=== PATIENT | female | born 1990 | race Caucasian/White ===

== ENCOUNTER 2018-05-13 09:46 | Inpatient (IN) | payer OTHER ==
[~2018-05-13] VITALS: Ht 170.2 cm; Wt 67.1 kg
[2018-05-13] MEDS ORDERED: PRENATAL MULTI1 EAC2 PO (10:46)
[2018-05-13 10:47] VITALS: BP 136/81
[2018-05-13 10:59] LABS: ABSOLUTE BASOPHIL COUNT 0.1 /CUMM (0.0-0.2); ABSOLUTE EOSINOPHIL COUNT 0.1 /CUMM (0.0-0.7); ABSOLUTE GRANULOCYTE CT 12.1 /CUMM (1.4-6.5); ABSOLUTE LYMPH COUNT 2.4 /CUMM (1.2-3.4); ABSOLUTE MONOCYTE COUNT 0.8 /CUMM (0.10-0.60); BASOPHIL % 0.5 % (0.0-2.0); EOSINOPHIL % 0.6 % (0-5); GRANULOCYTE % 78.1 % (42.2-75.2); HEMATOCRIT 39.3 % (37-47); MEAN CORPUSCULAR HGB 33.8 PG (27.0-31.0); MEAN CORPUSCULAR HGB CONC 35.2 G/DL (33.0-37.0); MEAN PLATELET VOLUME 9.1 FL (7.4-10.4); PLATELET COUNT 224 /CUMM (130-400); RBC DISTRIBUTION WIDTH 12.6 % (11.5-14.5); RED BLOOD CELL CT 4.09 /CUMM (4.20-5.40); WHITE BLOOD CELL COUNT 15.4 /CUMM (4.8-10.8)
--- NOTE | 2018-05-13 11:48 | History & Physical ---
General Information and HPI MD Statement: I have seen and personally examined COLETTE NOLAN and documented this H&P. The patient is a 28 year old female at 39 weeks and 5 days gestation who presented with a chief complaint of labor pains. Source of Information: patient, old records Exam Limitations: no limitations History of Present Illness: Pt has been having painfull contractions since last pm no rom, vb +fm. well known to our practice good growth no problems Allergies/Medications Allergies: Coded Allergies: No Known Allergies (05/13/18) Home Med list Pnv No.122/Iron/Folic Acid ( Multi Tablet) 27 MG IRON-800 MCG TABLET 1 TAB PO DAILY PREGANCY (Reported) Compliance With Home Meds: GOOD Past History management sme History : 1 Para: 0 Last Menstrual Period: 08/08/17 Estimated Delivery Date: 05/15/18 Past management sme History: none Medical History Blood Transfusion Hx: No Surgical History Pertinent Surgical History: none Past Family/Social History Psychosocial History Smoking Status: Never Smoked Review of Systems Review of Systems Constitutional: Denies: chills. EENTM: Denies: blurred vision, double vision, visual changes. Cardiovascular: Denies: chest pain. Respiratory: Denies: cough, short of breath. Neurological/Psychological: Denies: anxiety, depressed. Exam & Diagnostic Data Last 24 Hrs of Vital Signs/I&O vss Vital Signs Date Time Temp Pulse Resp B/P B/P Pulse O2 O2 Flow FiO2 Mean Ox Delivery Rate 05/13 1047 136/81 Intake & Output 05/13 1600 05/13 0800 05/13 0000 Intake Total Output Total Balance Patient 148 lb Weight Obstetric Exam Wgt Gained During : 40lbs Pelvimetry: seems adequate Dilation (cm): 8 Effacement (%): 90 Station: -1 Membranes: AROM Fluid: clear Fundal Height (cm): 40 Multiple Gestation? No Contractions: Q3-4 min Infant #1 - FHR Baseline: 130 Category: 1 Estimated Weight: 3700g Presentation: vtx Patient for Induction? No Physical Exam General Appearance Alert, Oriented X3, Cooperative Skin No Rashes HEENT Atraumatic Neck Supple Cardiovascular Regular Rate Lungs Clear to Auscultation Abdomen Normal Bowel Sounds Neurological Normal Gait, Normal Speech, Strength at 5/5 X4 Ext, Normal Tone Vascular Normal Pulses Labs Blood Type & Rh: A pos Antibody Screen: neg Hct/Hgb & Platelets #1: 42.8/14/256 Hct/Hgb & Platelets #2: 38.3/13.1/239 Rubella: immune VDRL #1: nr VDRL #2: nr HbsAg: neg HIV #1: nr HIV #2 nr 1 Hr P Group B Strep: negative Initial Ultrasound: 10/05/17 8w Anatomy Ultrasound: 01/05/18 wnl Ultrasound for EFW: 05/02/18 45%tile Genetic Testing: SMA, CF cffDNA negative Last 24 Hrs of Labs/Duglas: Laboratory Tests 05/13/18 1035: CBC w Diff NO MAN DIFF REQ, RBC 4.09 L, MCV 96.0, MCH 33.8 H, MCHC 35.2, RDW 12.6, MPV 9.1, Gran % 78.1 H, Lymphocytes % 15.5 L, Monocytes % 5.3, Eosinophils % 0.6, Basophils % 0.5, Absolute Granulocytes 12.1 H, Absolute Lymphocytes 2.4, Absolute Monocytes 0.8 H, Absolute Eosinophils 0.1, Absolute Basophils 0.1, Urinalysis LIGHT H, Urine Color STRAW, Urine Clarity HAZY H, Urine pH 7.5, Ur Specific [place] 1.010, Urine Protein NEG, Urine Ketones NEG, Urine Nitrite NEG, Urine Bilirubin NEG, Urine Urobilinogen 0.2, Ur Leukocyte Esterase SMALL H, Ur Microscopic SEDIMENT EXAMINED, Urine RBC 3-5, Urine WBC 5- 10 H, Ur Epithelial Cells MOD H, Urine Bacteria MOD H, Urine Mucus RARE, Urine Hemoglobin MOD H, Urine Glucose NEG Assessment/Plan Assessment/Plan: iup at term active labor plan expectant management As Ranked By This Provider Problem List: 1. Normal labor Core Measures Venous Thromboembolism VTE Risk Factors / No Mechanical VTE Prophylaxis d/t LowRisk-No Interven Req'd No VTE Pharm Prophylaxis d/t LowRisk-No Interven Req'd Attending MD Review Statement Attending Statement Attending MD Statement: examined this patient, discussed with family, discussed w/nursing
--- NOTE | 2018-05-13 16:19 | Labor & Delivery Summary ---
Delivery Summary Vaginal Delivery: Vaginal: vertex Episiotomy/Lacerations: Episiotomy/Lacerations: yes Type: 2 degree laceration Repair: 3-0 polysorb Anesthesia: 5cc nessicaine Placenta: Placenta: spontanteous, normal, 3 vessel Anesthesia: local Apgars - 1 Min: 8 Apgars - 5 Min: 9 Additional Comments: no epidural or pain meds during labor and delivery had N2O for a short period. Pushed 2 1/2 hours, PP hemorrhage secondary to atony Rx with IV pitocin and methergine No Iv initally. EBL 1100cc.
--- NOTE | 2018-05-13 17:40 | PN- OBGYN ---
Surgical Brief Attending Note Brief Attending Note: pt continued to bleed after 1 gram ivp transaminic acid, reexploration of the vagina at the bedside revieled a retracted vessel on the right pelvic sidewall pumping arterial blood after infiltration with 3 cc nessicaine the blood vessel was ligated with a 3-0 polysorb and hemostasis was achieved.
[2018-05-14 06:47] LABS: ABSOLUTE BASOPHIL COUNT 0.1 /CUMM (0.0-0.2); ABSOLUTE EOSINOPHIL COUNT 0 /CUMM (0.0-0.7); ABSOLUTE GRANULOCYTE CT 14.7 /CUMM (1.4-6.5); ABSOLUTE LYMPH COUNT 2.8 /CUMM (1.2-3.4); ABSOLUTE MONOCYTE COUNT 1.4 /CUMM (0.10-0.60); BASOPHIL % 0.3 % (0.0-2.0); EOSINOPHIL % 0.1 % (0-5); GRANULOCYTE % 77.6 % (42.2-75.2); MEAN CORPUSCULAR HGB 34.1 PG (27.0-31.0); MEAN CORPUSCULAR HGB CONC 34.9 G/DL (33.0-37.0); MEAN CORPUSCULAR VOLUME 97.9 FL (81.0-99.0); MEAN PLATELET VOLUME 8.5 FL (7.4-10.4); PLATELET COUNT 190 /CUMM (130-400); RBC DISTRIBUTION WIDTH 12.9 % (11.5-14.5); RED BLOOD CELL CT 3.14 /CUMM (4.20-5.40)
[2018-05-14 06:55] LABS: HEMATOCRIT 30.7 % (37-47)
--- NOTE | 2018-05-14 12:46 | PN- Post Delivery/GYN ---
Subjective Subjective: FEELING WELL Review of Systems Constitutional: Denies: chills, fever. EENTM: Denies: blurred vision, double vision, visual changes. Objective Last 24 Hrs of Vital Signs/I&O VSS Physical Exam General Appearance Alert, Oriented X3, Cooperative, No Acute Distress Cardiovascular Regular Rate Lungs Clear to Auscultation Abdomen Normal Bowel Sounds, Soft, No Tenderness, FUNDUS FIRM Pelvic (FEMALE) LOCHIA SEROSANGANOUS Current Medications: Current Medications Sig/Farrah Start time Last Medication Dose Route Stop Time Status Admin Acetaminophen 0 .STK-MED ONE 05/14 1150 DC PO Acetaminophen 0 .STK-MED ONE 05/14 0615 DC PO Acetaminophen 650 MG Q4P PRN 05/13 1630 AC 05/14 PO 1149 Chloroprocaine HCl 0 .STK-MED ONE 05/13 1718 DC .ROUTE Chloroprocaine HCl 30 ML ONCE ONE 05/13 1630 DC 05/13 SC 05/13 1631 1715 Chloroprocaine HCl 0 .STK-MED ONE 05/13 1314 DC .ROUTE Docusate Sodium 0 .STK-MED ONE 05/14 0853 DC PO Docusate Sodium 100 MG BID PRN 05/13 1630 05/14 PO 0854 Hydroxyzine HCl 50 MG AT BEDTIME NEED.. 05/13 1630 AC PO Ibuprofen 0 .STK-MED ONE 05/14 0853 DC PO Ibuprofen 800 MG Q6P PRN 05/13 1630 AC 05/14 PO 0854 Ketorolac 0 .STK-MED ONE 05/13 1542 DC Tromethamine .ROUTE Lactated Ringer's 1,000 ML Q8H 05/13 1030 DC IV Lidocaine 1 ML ONCE ONE 05/14 0030 DC SC 05/14 0031 Magnesium Hydroxide 30 ML DAILY PRN 05/13 1630 AC PO Methylergonovine 200 MCG FOUR TIMES A DAY 05/13 1800 DC Maleate PO 05/14 1001 Methylergonovine 0.2 MG STAT STA 05/13 1620 DC 05/13 Maleate IM 05/13 1621 1553 Oxytocin 10 UNITS ONCE ONE 05/13 1630 DC 05/13 IM 05/13 1631 1535 Oxytocin 20 UNITS Q5H 05/13 1630 DC 05/13 Lactated Ringer's 1,000 ML IV 05/13 2129 1645 Petrolatum 1 THAO Q1P PRN 05/14 30 CAN EXT Sucrose 2 ML ONCE ONE 05/14 30 CAN PO 05/14 31 Tranexamic Acid 0 .STK-MED ONE 05/13 1655 DC IV Last 24 Hrs of Labs/Duglas: Laboratory Tests 05/14/18 0610: CBC w Diff NO MAN DIFF REQ, RBC 3.14 L, MCV 97.9, MCH 34.1 H, MCHC 34.9, RDW 12.9, MPV 8.5, Gran % 77.6 H, Lymphocytes % 14.6 L, Monocytes % 7.4, Eosinophils % 0.1, Basophils % 0.3, Absolute Granulocytes 14.7 H, Absolute Lymphocytes 2.8, Absolute Monocytes 1.4 H, Absolute Eosinophils 0, Absolute Basophils 0.1 Assessment/Plan Assessment/Plan ppd #1 VSS HCT STABLE PLAN D/C HOME TOMORROW
[2018-05-15] MEDS ORDERED: IBUPROFEN800 M1 PO (08:55)
--- NOTE | 2018-05-15 08:58 | PN- OBGYN ---
Surgical Brief Attending Note Brief Attending Note: PPD#2 pt is resting in bd, no complaints PE: VSS CV RRRLungs CTA B/L Abdomen: gravid, soft, nontender, uterus firm, fundus below umbilicus, lochia mild Ext: DCT (-) A/P: 28yo, s/p , PPD#2 1 . encourage ambulation and 2. pain management as needed 3. RT PP care 4. will d/c home, f/u in office in 2wks,and 6 wks. discharge instructions given, she understand.
== END 2018-05-15 10:55 | DRG 774 ==
LOC: CBCO 09:46 → GNO 10:21
PROVIDERS: Obstetrics & Gynecology
PROC: 10907ZC Drainage of Amniotic Fluid, Therapeutic from Products of Conception, Via Natural or Artificial Opening (ICD-10-PCS; principal; 2018-05-13)
PROC: 10E0XZZ Delivery of Products of Conception, External Approach (ICD-10-PCS; principal; 2018-05-13)
PROC: 0KQM0ZZ Repair Perineum Muscle, Open Approach (ICD-10-PCS; principal; 2018-05-13)
DX: O70.1 Second degree perineal laceration during delivery (principal); O67.9 Intrapartum hemorrhage, unspecified; Z37.0 Single live birth; Z3A.39 39 weeks gestation of pregnancy
CPT/HCPCS: GNOS; 36415; 81001; J1885; J7120